=== PATIENT | female | born 1945 | race Caucasian/White ===

== ENCOUNTER 2017-02-06 11:49 | Emergency (ER) | payer MEDICARE ==
[~2017-02-06] VITALS: Ht 165.1 cm; Wt 61.5 kg
[~2017-02-06 11:49] MED LIST: ALPR.5 PO; AMLO10 PO; CEPH-460 PO; LORA-361 PO
[2017-02-06 11:56] VITALS: BP 141/81; PULSE 100; RESP 16; TEMP 98.4; O2SAT 98
[2017-02-06] MEDS ORDERED: VITA1000 PO (12:14)
[2017-02-06] MEDS ORDERED: CALC1TAB12 PO (12:14)
[2017-02-06] MEDS ORDERED: MOBI15TA PO (12:14)
[2017-02-06] MEDS ORDERED: BUTA1CAP PO (12:15)
--- NOTE | 2017-02-06 12:16 | PD ---
HPI Chief Complaint: Abdominal Pain Time Seen by Provider: 12:08 Travel History International Travel<30 days: No Contact w/Intl Traveler<30days: No Traveled to known affect area: No History of Present Illness HPI This 71-year-old female says she been having epigastric pain off and on since December. She went to see Dr. Mercer and was put on Prilosec. She took a Prilosec daily for a while but it didn't seem to help. She says the stabbing pain in the epigastric area. It does seem worse with fatty foods. She has no history of a dopplerable surgery. She does have prescription for Motrin but has not been taking it. She drinks wine at bed time. 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) Immunizations Current: Yes Thyroid Disease: No Tetanus Vaccination: < 5 Years Influenza Vaccination: No Past Surgical History Abdominal Surgery: Yes (APPENDECTOMY) AICD: No Appendectomy: Yes (1955) Body Medical Devices: N/A Cardiac Surgery: No Ear Surgery: No Endocrine Surgery: No Eye Surgery: Yes (LEFT RETINAL REP., RIGHT CATARACT EXTRACTION.) Genitourinary Surgery: No Gynecologic Surgery: No Joint Replacement: Yes (LEFT HIP) Neurologic Surgery: No Oral Surgery: Yes (CROWNS) Pacemaker: No Thoracic Surgery: No Other Surgery: Yes Social History Alcohol Use: Yes (1-2 GLASSES OF WINE/NIGHT) Tobacco Use: Yes (1 1/2 PACK OF CIGARETTES/DAY X 30YRS) Substance Use: No Allergies-Medications (Allergen,Severity, Reaction): Coded Allergies: No Known Allergies (Verified , 02/06/17) Reported Meds & Prescriptions Reported Meds & Active Scripts Active Reported Fioricet (Hfqliokxuf-Vxfwwwdweiszu-Ybfvofly) 50-300-40 Mg Cap 1 Cap PO Q4H PRN Calcium 500 +D (Calcium Carbonate-Cholecalciferol) 500-400 Mg-Unit Tab 1 Tab PO BID Vitamin D-1000 (Cholecalciferol) 1,000 Unit Tab 1,000 Units PO DAILY Mobic (Meloxicam) 15 Mg Tab 15 Mg PO DAILY Xanax (Alprazolam) 0.5 Mg Tab 0.5 Mg PO Q6H PRN Norvasc (Amlodipine Besylate) 10 Mg Tab 10 Mg PO DAILY Review of Systems General / Constitutional: No: Fever, Chills Eyes: No: Diploplia, Blurred Vision HENT: No: Vertigo, Lightheadedness Cardiovascular: No: Chest Pain or Discomfort, Palpitations Respiratory: No: Shortness of Breath Gastrointestinal: Positive: Abdominal Pain, No: Nausea Genitourinary: No: Dysuria, Nocturia Musculoskeletal: No: Arthralgias Physical Exam Narrative GENERAL: Well developed female SKIN: Focused skin assessment warm/dry. HEAD: Atraumatic. Normocephalic. EYES: Pupils equal and round. No scleral icterus. No injection or drainage. ENT: No nasal bleeding or discharge. Mucous membranes pink and moist. NECK: Trachea midline. No JVD. CARDIOVASCULAR: Regular rate and rhythm. No murmur appreciated. RESPIRATORY: No accessory muscle use. Clear to auscultation. Breath sounds equal bilaterally. GASTROINTESTINAL: Abdomen soft, there is some mild epigastric tenderness, nondistended. Hepatic and splenic margins not palpable. MUSCULOSKELETAL: No obvious deformities. No clubbing. No cyanosis. No edema. NEUROLOGICAL: Awake and alert. No obvious cranial nerve deficits. Motor grossly within normal limits. Normal speech. PSYCHIATRIC: Appropriate mood and affect; insight and judgment normal. Data Data Last Documented VS Vital Signs Date Time Temp Pulse Resp B/P Pulse Ox O2 Delivery O2 Flow Rate FiO2 02/06/17 12:55 86 16 117/77 96 02/06/17 11:56 98.4 Orders Complete Blood Count With Diff (02/06/17 12:14) Comprehensive Metabolic Panel (02/06/17 12:14) Lipase (02/06/17 12:14) Ct Abd/Pel W/O Iv Contrast (02/06/17 13:18) Labs Laboratory Tests Test 02/06/17 12:50 White Blood Count 9.4 TH/MM3 Red Blood Count 4.21 MIL/MM3 Hemoglobin 14.0 GM/DL Hematocrit 41.4 % Mean Corpuscular Volume 98.4 FL Mean Corpuscular Hemoglobin 33.1 PG Mean Corpuscular Hemoglobin 33.7 % Concent Red Cell Distribution Width 12.7 % Platelet Count 492 TH/MM3 Mean Platelet Volume 6.4 FL Neutrophils (%) (Auto) 69.5 % Lymphocytes (%) (Auto) 22.5 % Monocytes (%) (Auto) 5.1 % Eosinophils (%) (Auto) 2.2 % Basophils (%) (Auto) 0.7 % Neutrophils # (Auto) 6.5 TH/MM3 Lymphocytes # (Auto) 2.1 TH/MM3 Monocytes # (Auto) 0.5 TH/MM3 Eosinophils # (Auto) 0.2 TH/MM3 Basophils # (Auto) 0.1 TH/MM3 CBC Comment DIFF FINAL Differential Comment Sodium Level 135 MEQ/L Potassium Level 4.4 MEQ/L Chloride Level 102 MEQ/L Carbon Dioxide Level 25.6 MEQ/L Anion Gap 7 MEQ/L Blood Urea Nitrogen 24 MG/DL Creatinine 2.00 MG/DL Estimat Glomerular Filtration 25 ML/MIN Rate Random Glucose 91 MG/DL Calcium Level 9.5 MG/DL Total Bilirubin 0.4 MG/DL Aspartate Amino Transf 20 U/L (AST/SGOT) Alanine Aminotransferase 25 U/L (ALT/SGPT) Alkaline Phosphatase 138 U/L Total Protein 7.8 GM/DL Albumin 4.0 GM/DL Lipase 156 U/L MDM Medical Decision Making Medical Screen Exam Complete: Yes Emergency Medical Condition: Yes Medical Record Reviewed: Yes Differential Diagnosis Differential includes gastritis, ulcer disease, pancreatitis, cholelithiasis Narrative Course Lab work is unremarkable. A CT scan and this does not show evidence of biliary disease. Patient be treated for gastritis, possible ulcer. I recommended she follow up with Dr. Mercer who may refer her to GI. Her creatinine was 2 and she is not aware of any history of kidney disease I recommended that she increase her fluids and follow-up with Dr. Valenzuela Diagnosis Primary Impression: Gastritis Qualified Code: K29.70 - Gastritis without bleeding, unspecified chronicity, unspecified gastritis type Scripts Pantoprazole (Protonix)40 Mg Tab40 Mg PO DAILY #30 TAB Ref 0 Prov:Ross Joyce MD 02/06/17 Disposition: 01 DISCHARGE HOME Condition: Stable Ross Joyce MD Feb 06, 2017 12:16
[2017-02-06 12:55] VITALS: BP 117/77; PULSE 86; RESP 16; O2SAT 96
[2017-02-06 12:58] LABS: AUTOMATED NEUTROPHIL # 6.5 TH/MM3 (1.8-7.7); BASOPHIL # 0.1 TH/MM3 (0-0.2); BASOPHIL % 0.7 % (0.0-2.0); EOSINOPHIL # 0.2 TH/MM3 (0-0.4); EOSINOPHIL % 2.2 % (0.0-4.0); HEMATOCRIT 41.4 % (35.0-46.0); HEMO FLAGS DIFF FINAL; LYMPH % 22.5 % (9.0-44.0); LYMPHOCYTE # 2.1 TH/MM3 (1.0-4.8); MEAN CELL VOLUME 98.4 FL (80.0-100.0); MEAN CORPUSCULAR HEMOGLOBIN 33.1 PG (27.0-34.0); MEAN CORPUSCULAR HGB CONC 33.7 % (32.0-36.0); MONO % 5.1 % (0.0-8.0); NEUT % 69.5 % (16.0-70.0); PLATELET COUNT 492 TH/MM3 (150-450); RED BLOOD COUNT 4.21 MIL/MM3 (4.00-5.30); RED CELL DISTRIBUTION WIDTH 12.7 % (11.6-17.2); WHITE BLOOD COUNT 9.4 TH/MM3 (4.0-11.0)
[2017-02-06 13:07] LABS: CHLORIDE 102 MEQ/L (98-107); POTASSIUM 4.4 MEQ/L (3.5-5.1); SODIUM (NA) 135 MEQ/L (136-145)
[2017-02-06 13:11] LABS: ANION GAP 7 MEQ/L (5-15); BICARBONATE 25.6 MEQ/L (21.0-32.0); BLOOD UREA NITROGEN 24 MG/DL (7-18)
[2017-02-06 13:14] LABS: ALT (GPT) 25 U/L (10-53); AST (GOT) 20 U/L (15-37); GLOMERULAR FILTRATION RATE 25 ML/MIN (>89)
[2017-02-06 13:15] LABS: TOTAL BILIRUBIN ADULT 0.4 MG/DL (0.2-1.0)
[2017-02-06 13:17] LABS: ALKALINE PHOSPHATASE 138 U/L (45-117)
--- NOTE | 2017-02-06 14:07 | RADRPT ---
EXAM DATE/TIME: 02/06/2017 13:42 [facility] COMPARISON: No previous studies available for comparison. INDICATIONS : Epigastric pain. ORAL CONTRAST: No oral contrast ingested. RADIATION DOSE: 9.33 CTDIvol (mGy) MEDICAL HISTORY : Hypertension. SURGICAL HISTORY : Appendectomy. ENCOUNTER: Initial ACUITY: 1 month PAIN SCALE: 4/10 LOCATION: Epigastric TECHNIQUE: Volumetric scanning of the abdomen and pelvis was performed. Using automated exposure control and ad justment of the mA and/or kV according to patient size, radiation dose was kept as low as reasonably achievable to obtain optimal diagnostic quality images. DICOM format image data is available electro nically for review and comparison. FINDINGS: LOWER LUNGS: The visualized lower lungs are clear. LIVER: Homogeneous density without lesion. There is no dilation of the biliary tree. No calcified gallston es. SPLEEN: Normal size without lesion. There is a benign-appearing calcification present. PANCREAS: Within normal limits. KIDNEYS: Normal in size and shape. There is no mass, stone, or hydronephrosis. ADRENAL GLANDS: Within normal limits. VASCULAR: Systolic changes are noted throughout the aorta with no evidence of abdominal aortic aneurysm. There is a small right common iliac artery aneurysm measuring up to 2 cm. BOWEL/MESENTERY: No oral contrast was given limiting the sensitivity of the exam. There is a small hiatal hernia. Ther e are multiple scattered diverticuli present greatest in the sigmoid colon. There are multiple loops of nondilated air-containing small bowel with several small air-fluid levels. There is no free intrap eritoneal air or fluid. ABDOMINAL WALL: Within normal limits. RETROPERITONEUM: There is no lymphadenopathy. BLADDER: No wall thickening or mass. REPRODUCTIVE: Within normal limits. INGUINAL: There is no lymphadenopathy or hernia. MUSCULOSKELETAL: Osteopenia and degenerative change. The patient is status post left hip arthroplasty. CONCLUSION: 1. Mild diverticulosis with no inflammatory change. 2. Small hiatal hernia. 3. Right common iliac artery aneurysm measuring up to 2 cm. 4. Mildly nonspecific, nonobstructive bowel gas pattern which may represent a mild ileus or gastroent eritis. Jeffrey Sol MD on February 06, 2017 at 13:57 Board Certified Radiologist. This report was verified electronically.
[2017-02-06] MEDS ORDERED: PROT40TA PO (14:42)
[2017-02-06 14:53] VITALS: BP 139/95
== END 2017-02-06 14:58 | disposition home or self-care (01) ==
LOC: PHED 11:49
DX: K29.70 Gastritis, unspecified, without bleeding (principal); I10 Essential (primary) hypertension; F17.200 Nicotine dependence, unspecified, uncomplicated; Z87.39 Personal history of other diseases of the musculoskeletal system and connective tissue; Z86.59 Personal history of other mental and behavioral disorders; Z87.09 Personal history of other diseases of the respiratory system
CPT/HCPCS: 74176; 80053; 83690; 85025; 99284